=== PATIENT | male | born 1965 | race Caucasian/White ===

== ENCOUNTER 2017-04-17 17:36 | Emergency (ER) | payer BC, OTHER ==
[2017-04-17 17:57] VITALS: TEMP 98.1
--- NOTE | 2017-04-17 19:09 | EDPHY ---
H & P Smoking Status: Never smoked Time Seen by Provider: 04/17/17 18:51 HPI/ROS: CHIEF COMPLAINT: Fall off horse, head injury HISTORY OF PRESENT ILLNESS: 51-year-old male presents to the emergency department after he fell off of a horse 4 days ago while he was in [facility]. The patient states that he had a brief loss of consciousness any states that he had about 20 min of loss of memory according to his . He has a left -sided headache. He has some pain in the left side of his neck as well. He denies chest pain or difficulty breathing. No visual symptoms. He states that he [place] and presents for evaluation. Denies paresthesias in his upper lower extremities. Denies any other trauma or injury. REVIEW OF SYSTEMS: Constitutional: No fever, no chills. Eyes: No double or blurry vision. ENT: No sore throat. Respiratory: No cough, no shortness of breath. Cardiac: No chest pain. Gastrointestinal: No abdominal pain, vomiting or diarrhea. Genitourinary: No dysuria. Musculoskeletal: Neck pain. No back pain. Skin: No rashes. Neurological: headache. (Ester Mtz) Past Medical/Surgical History: Subdural hematoma 13 years ago requiring craniotomy (Ester Mtz) Social History: (Ester Mtz) Physical Exam: General Appearance: Alert, no distress. Eyes: Pupils equal and round. Extraocular motions are all intact. Ecchymosis noted to the left lateral aspect of the orbit. No palpable crepitus or other bony abnormality. ENT: Mouth: Mucous membranes moist. No hemotympanum. No dental injury or malocclusion. Respiratory: No wheezing, rhonchi, or rales, lungs are clear to auscultation. Cardiovascular: Regular rate and rhythm. Gastrointestinal: Abdomen is soft and nontender, no masses, no rebound or guarding, bowel sounds normal. No CVA tenderness bilaterally. Neurological: Alert and oriented x 3, cranial nerves II through XII grossly intact Skin: Healing abrasions to the palm of the left hand. Warm and dry, no rashes. Musculoskeletal: Mild pain with palpation along cervical spine. No palpable crepitus or other bony abnormality. Nontender to palpate along thoracic or lumbar spine. Extremities: Full range of motion and no peripheral edema. Psychiatric: Patient is oriented X 3, there is no agitation. (OmayraasadEster Luz Marina) Constitutional: Initial Vital Signs Temperature (C) 36.7 C 04/17/17 17:53 Heart Rate 41 L 04/17/17 17:53 Respiratory Rate 16 04/17/17 17:53 Blood Pressure 155/117 H 04/17/17 17:53 O2 Sat (%) 97 04/17/17 17:53 O2 Delivery Mode Room Air Allergies/Adverse Reactions: No Known Allergies Allergy (Unverified 04/17/17 17:53) Home Medications: Medication Instructions Recorded NK [No Known Home Meds] 04/17/17 Medical Decision Making - Diagnostics Imaging: Discussed imaging studies w/ call center analyst Radiologist ED Course/Re-evaluation: 51-year-old male presents to the emergency department after he fell off his horse hitting his head. Patient has a history of previous subdural hematoma requiring surgery. CT imaging of the head and cervical spine has been ordered and is pending. Patient was placed in a cervical collar. CT imaging of the brain and cervical spine was negative for intracranial bleed. Degenerative changes noted cervical spine. Patient was given closed-head injury precautions. He will return if he develops worsening headache, vomiting, altered mental status, or any other concerns. (Ester Mtz) I did not see this patient while he was in the emergency department. However his care was discussed with the PA while the patient was in the department. I agree with treatment plan and management (Kaden Goode) Differential Diagnosis: Head injury including but not limited to concussion, skull fracture, intraparenchymal contusion, subarachnoid, subdural and epidural hematoma. (Ester Mtz) Departure - Departure Disposition: Home, Routine, Self-Care Clinical Impression: Head injury Qualifiers: Encounter type: initial encounter Qualified Code(s): S09.90XA - Unspecified injury of head, initial encounter Cervical strain Qualifiers: Encounter type: initial encounter Qualified Code(s): S16.1XXA - Strain of muscle, fascia and tendon at neck level, initial encounter Condition: Good Instructions: Cervical Strain (ED), Head Injury (ED) Additional Instructions: Avoid any activity that might put you at risk for another head injury for at least 1 week. Return to the emergency department if you develop worsening headache, vomiting, altered mental status, or if you feel worse in any way. Referrals: Marita Dumont MD [[facility] [place] Primary Care Provider] - As per Instructions (Primary care provider sales solutions representative)
[2017-04-17 19:51] VITALS: BP 147/92; PULSE 53; RESP 18; O2SAT 98
== END 2017-04-17 20:04 | disposition home or self-care (01) ==
DX: S09.90XA Unspecified injury of head, initial encounter (principal); S16.1XXA Strain of muscle, fascia and tendon at neck level, initial encounter; V80.010A Animal-rider injured by fall from or being thrown from horse in noncollision accident, initial encounter; Y92.89 Other specified places as the place of occurrence of the external cause; Y93.89 Activity, other specified